=== PATIENT | female | born 1945 | race Caucasian/White ===

== ENCOUNTER 2018-05-08 07:15 | Inpatient (IN) | payer OTHER ==
[~2018-05-08] VITALS: Ht 160 cm; Wt 91.2 kg
[~2018-05-08 07:15] MED LIST: B-12500 MCG PO; CALTRATE 600 W-1 TAB PO; CARAFATE1 G PO; CARDIZEM60 MG PO; CELEBREX200MG PO; CIPRO500 MG PO; DIOVAN HCT 320/1 TA2 PO; GABAPENTIN100 MG PO; GABAPENTIN300 MG PO; PERCOCET 5/3251 TAB PO; VITA-C120 GM PO; XARELTO10 MG PO; ZETIA10 MG PO
[2018-05-08] MEDS ORDERED: GABAPENTIN600 MG PO (08:41)
[2018-05-08] MEDS ORDERED: LOSARTAN-HCTZ1 EACH PO (08:42)
[2018-05-08] MEDS ORDERED: ZANTAC300 MG PO (08:42)
[2018-05-08] MEDS ORDERED: CALTRATE 600+D1 EAC1 PO (08:42)
[2018-05-08] MEDS ORDERED: CELEBREX200MG PO (08:43)
[2018-05-08] MEDS ORDERED: ZETIA10 MG PO (08:43)
[2018-05-17] MEDS ORDERED: XARELTO10 MG PO (08:18)
[2018-05-17] MEDS ORDERED: CIPRO500 MG PO (08:18)
[2018-05-17] MEDS ORDERED: PERCOCET 5-3251 EACH PO (08:18)
== END 2018-05-17 12:19 | DRG 470 ==
LOC: SURG 05-14 06:29 → O/R 05-14 06:29 → SURH 05-14 07:15 → SURG 05-14 15:19
PROVIDERS: Orthopaedic Surgery
PROC: 0QND0ZZ Release Right Patella, Open Approach (ICD-10-PCS; 2018-05-14)
PROC: 0QSG06Z Reposition Right Tibia with Intramedullary Internal Fixation Device, Open Approach (ICD-10-PCS; 2018-05-14)
PROC: 3E0F7GC Introduction of Other Therapeutic Substance into Respiratory Tract, Via Natural or Artificial Opening (ICD-10-PCS; 2018-05-14)
PROC: 0SRC0J9 Replacement of Right Knee Joint with Synthetic Substitute, Cemented, Open Approach (ICD-10-PCS; principal; 2018-05-14 18:30)
DX: M17.11 Unilateral primary osteoarthritis, right knee (principal); S82.134A Nondisplaced fracture of medial condyle of right tibia, initial encounter for closed fracture; M80.00XA Age-related osteoporosis with current pathological fracture, unspecified site, initial encounter for fracture; D62 Acute posthemorrhagic anemia; T84.89XA Other specified complication of internal orthopedic prosthetic devices, implants and grafts, initial encounter; M22.11 Recurrent subluxation of patella, right knee; I10 Essential (primary) hypertension; E66.01 Morbid (severe) obesity due to excess calories; E78.2 Mixed hyperlipidemia; J45.20 Mild intermittent asthma, uncomplicated; G47.33 Obstructive sleep apnea (adult) (pediatric); R73.01 Impaired fasting glucose